=== PATIENT | female | born 1980 | race Caucasian/White ===

== ENCOUNTER 2020-06-30 13:20 | Outpatient (REF) | payer OTHER, SELFPAY | END 2020-06-30 13:21 | disposition home or self-care (01) | LOC: HO.LAB 13:20 | PROVIDERS: Visit Provider Internal Medicine | DX: Z20.828 Contact with and (suspected) exposure to other viral communicable diseases (principal) | CPT/HCPCS: C9803; U0003 ==

== ENCOUNTER → 2022-04-08 13:58 | Outpatient (BNVA) | payer OTHER, SELFPAY | PROVIDERS: Visit Provider Internal Medicine | DX: M25.511 Pain in right shoulder (principal) | CPT/HCPCS: 99202 ==

== ENCOUNTER → 2022-04-15 11:48 | Outpatient (BNVA) | payer OTHER, SELFPAY | PROVIDERS: Visit Provider Internal Medicine | DX: M25.511 Pain in right shoulder (principal) | CPT/HCPCS: 99213 ==

== ENCOUNTER → 2022-04-29 14:16 | Outpatient (BNVA) | payer OTHER, SELFPAY | PROVIDERS: Visit Provider Internal Medicine | DX: M25.511 Pain in right shoulder (principal) | CPT/HCPCS: 99213 ==

== ENCOUNTER → 2022-05-12 13:51 | Outpatient (BNVA) | payer OTHER, SELFPAY | PROVIDERS: Visit Provider Physician Assistant | DX: M25.511 Pain in right shoulder (principal) | CPT/HCPCS: 99213 ==

== ENCOUNTER 2022-05-19 07:00 | Outpatient (RCR) | payer OTHER, SELFPAY ==
[2022-04-09 07:03] VITALS: BP 160/92; PULSE 86; O2SAT 100
--- NOTE | 2022-04-09 11:47 | MHC.PT.EP ---
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 OBJECTIVE FINDINGS: LIMITED CERV AND Rt SH AROM, DECR POST RC/ MID BACK STRENGTH, DECR POSTURAL AWARENESS, (+) SOFT TISSUE IRRIT AND PAIN IN Rt PECT/ TRICEP/UT/ CERVICOTHOR PS MM. HER SXS DO NOT APPEAR TO BE RADICULAR IN ORIGIN, ALTHOUGH SHE IS HYPOMOBILE IN UPPER CERV SPINE. FUNCTIONALLY, Pt HAS DIFFIC REACHING AND LIFTING W RIGHT UE, UNABLE TO SLEEP, DIFFIC REACHING TO DO HER HAIR, AND IS ON MODIFIED DUTY AT WORK. Pt WOULD BENEFIT FROM PT TO ADDRESS THE ABOVE FINDINGS, DEV A PROGR HEP, EASE SOFT TISSUE IRRIT, AND DEV SELF-SX MGMT TECHN TO ALLOW Pt TO PERF ADLs AND WORK DUTIES W/O EXACERB OF SXS. Frequency and Duration: The patient will be seen 2 x WK x 5 WKS Short Term Goals: *Pt'S RT CERV/ SCAP/ PECT PAIN DECR TO 2-10 *WFL CERV AND Rt SH AROM *Pt INDEP W POSTURAL SELF CORRECTION *Pt REPORT IMPROVED SLEEP ABILITY Fpc Goals: *Pt INDEP HEP PROGR AND SELF-SX MGMT STRATEGIES FOR Rt CERV/SH INJURY IN 5 WKS Pt RESUME REG ADLs ANDNRTW RD EVIDENT IN IMPROVED SPADI BY AT LEAST 8-10 POINTS ( AT EVAL 99 /130 ) IN 5 WKS *WFL STRENGTH Rt SH COMPLEX Treatment Plan: Modalities to reduce pain, spasms and effusion. Manual therapy to restore motion and function. Therapeutic exercise to improve strength and flexibility. Neuromuscular re-education for posture and balance. Therapeutic activities to return to functional activities of daily living. Electronically signed by: CHEY JESSICA PT Please sign and return to therapist. Thank you for your referral.
--- NOTE | 2022-05-19 07:50 | MHC.PT.DC ---
[facility] [place] Office [place] Office [place] [facility] [address] Dena Bills [address] [phone] F: [phone] F: [phone] F: [phone] F: [phone] Physical Therapy Discharge Report Diagnosis: Rt SH STRAIN/ SPASM Date of Surgery: Date of Evaluation: 04/09/22 Date of Discharge: 05/19/22 Treatments to Date: 8 Cancellations to Date: 2 No Shows to Date: Discharge Status: Achieved Goals Improved Function Independent with HEP Discharge Summary: Pt MET HER PT GOALS AT THIS TIME- SHE HAS WFL AROM CERV REGION, SUBJECTIVE PAIN RESOLVED, MOTIVATED AND COMPLIANT W HEP, SPADI SCORE AT D/C 3/130 AND AT EVAL 99/130 Electronically signed by: Carlee Sorenson,PT Please sign and return to therapist. Thank you for your referral.
== END 2022-05-19 07:51 | disposition home or self-care (01) ==
LOC: HO.PT 07:00
PROVIDERS: PCP Internal Medicine; Visit Provider Internal Medicine
DX: S46.911D Strain of unspecified muscle, fascia and tendon at shoulder and upper arm level, right arm, subsequent encounter (principal); M62.838 Other muscle spasm
CPT/HCPCS: 97035; 97110; 97140; 97162

== ENCOUNTER → 2022-05-27 15:41 | Outpatient (BNVA) | payer OTHER, SELFPAY | PROVIDERS: Visit Provider Internal Medicine | DX: M25.511 Pain in right shoulder (principal) | CPT/HCPCS: 99213 ==